=== PATIENT | male | born 1960 | race African-American/Black ===

== ENCOUNTER 2017-10-30 23:08 | Emergency (ER) | payer SELFPAY ==
[~2017-10-30] VITALS: Ht 180.3 cm; Wt 109.9 kg
[2017-10-30 23:13] VITALS: TEMP 36.8; Ht 180.3 cm; Wt 109.9 kg
[2017-10-31 00:16] LABS: EOS % 2.3 %; HEMATOCRIT 42.4 % (42-52); IG% 0.2 %; LYMPH ABS # 2.74 K/uL (1.2-3.4); MEAN CELL VOLUME 74.6 fL (80-100); MEAN CORPUSCULAR HEMOGLOBIN 24.1 pg (25-34); MEAN CORPUSCULAR HGB CONC 32.3 g/dl (32-36); MEAN PLATELET VOLUME 9.9 fL (7.4-10.4); MONO % 10.9 %; NEUT % 38.6 %; PLATELET COUNT 204 K/uL (130-400); RED BLOOD COUNT 5.68 M/uL (4.7-6.1); WHITE BLOOD COUNT 5.71 K/uL (4.8-10.8)
[2017-10-31 00:44] LABS: COMPLETE YES; MICROCYTOSIS PRESENT; OVALOCYTES 1+; POLYCHROMASIA 1+; VACUOLIZATION 1+
[2017-10-31 00:50] LABS: ALKALINE PHOSPHATASE 72 U/L (45-117); ALT/SGPT 32 U/L (12-78); AST/SGOT 15 U/L (15-37); BLOOD UREA NITROGEN 10 mg/dl (7-18); BUN/CREATININE RATIO 8.8 (10-20); CALCIUM 8.9 mg/dl (8.5-10.1); CARBON DIOXIDE 26 mmol/L (21-32); CHLORIDE 101 mmol/L (98-107); CKMB/CK RATIO 0.8 (0-3.0); CREATININE 1.09 mg/dl (0.60-1.40); GLUCOSE 243 mg/dl (70-99); POTASSIUM 3.9 mmol/L (3.5-5.1); SODIUM 133 mmol/L (136-145)
[2017-10-31] MEDS ORDERED: VITA1TAB7 PO (01:28)
[2017-10-31] MEDS ORDERED: VITATAB19 PO (01:28)
[2017-10-31] MEDS ORDERED: CHOL1000 PO (01:28)
--- NOTE | 2017-10-31 02:57 | EMERGENCY ROOM VISIT NOTE ---
History First contact with patient: 23:17 Chief Complaint: ARM PAIN Stated Complaint: SORE ARM History of Present Illness The patient is a 57 year old male who presents to the Emergency Room with complaints of bilateral arm pain for the past week or so who states she's had a blood clot in an arm before but was not on anti-platelet medication. She cannot recall when she had this blood clot and does not know this superficial or deep. Patient has been traveling recently. She does not smoke. Patient states she's been traveling as his ex-boyfriend is stocking him. There is no restraining order. She did notify the police when she was in [place] 3 days ago about this. She states she does not need to re-notify the police here in [place]. Patient states she's been out of his diabetes, blood pressure, cholesterol and transgender medications. He recognizes himself as a female. He 's had breast implants and genitalia surgery. Patient denies chest pain, dyspnea, fever, chills, numbness, tingling, weakness, leg pain or swelling. Patient denies history of CVA or heart disease. No tobacco use. No drug use. Review of Systems See HPI for pertinent positives & negatives. A total of 10 systems reviewed and were otherwise negative. Past Medical/Surgical History Diabetes, hypertension, hyperlipidemia, cholecystectomy Social History Smoking Status: Never Smoker Smokeless Tobacco Use: No Alcohol Use: occasionally Drug Use: none Marital Status: single Current/Historical Medications Scheduled Cholecalciferol (Vitamin D3), Unknown Dose PO DAILY Vitamin A-Beta Carotene (Vitamin A), Unknown Dose PO DAILY Vitamin E (Vitamin E), Unknown Dose PO DAILY Physical Exam Vital Signs Date Time Temp Pulse Resp B/P (MAP) Pulse Ox O2 Delivery O2 Flow Rate FiO2 10/31/17 01:23 64 18 142/80 96 Room Air 10/31/17 00:09 74 10/30/17 23:13 36.8 81 18 155/82 96 Room Air Physical Exam VITALS: Vitals are noted on the nurse's note and reviewed by myself. Vital signs stable. GENERAL: Pleasant female, in no acute distress, nondiaphoretic, well-developed well-nourished. SKIN: The skin was without rashes, erythema, edema, or bruising. There is no tenting of the skin. Capillary reflex less than 2 seconds. HEAD: Normocephalic atraumatic. EARS: External auditory canals clear, tympanic membranes pearly [place] without erythema or effusion bilaterally. EYES: Pupils equal round and reactive to light and accommodation. Conjunctivae without injection, sclerae without icterus. Extraocular movements intact. NOSE: Patent, turbinates without inflammation or discharge. MOUTH: Mucous membranes moist. Pharynx without erythema or exudate. Uvula midline. Airway patent. Tongue does not deviate. NECK: Supple without nuchal rigidity. No lymphadenopathy. No thyromegaly. Cervical spine is nontender. No JVD. HEART: Regular rate and rhythm LUNGS: Clear to auscultation bilaterally without wheezes, rales or rhonchi. No dullness to percussion. No retractions or accessory muscle use. ABDOMEN: Positive bowel sounds x 4. Normal tympanic percussion. Soft, nontender, without masses or organomegaly. Bradley sign negative. No guarding or rebound tenderness. MUSCULOSKELETAL: No muscle atrophy, erythema, or edema noted. Bilateral arms nontender to palpation with 5 over 5 strength bilaterally. Radial pulses +2 equal present bilaterally. NEURO: Patient was alert and oriented to person place and time. Normal sensation to light and sharp touch. No focal neurological deficits. Medical Decision & Procedures Laboratory Results 10/31/17 00:05 Red Blood Count 5.68, Mean Corpuscular Volume 74.6, Mean Corpuscular Hemoglobin 24.1, Mean Corpuscular Hemoglobin Concent 32.3, Mean Platelet Volume 9.9, Neutrophils (%) (Auto) 38.6, Lymphocytes (%) (Auto) 48.0, Monocytes (%) (Auto) 10.9, Eosinophils (%) (Auto) 2.3, Basophils (%) (Auto) 0.0, Neutrophils # (Auto ) 2.21, Lymphocytes # (Auto) 2.74, Monocytes # (Auto) 0.62, Eosinophils # (Auto ) 0.13, Basophils # (Auto) 0.00 10/31/17 00:05 Test 10/31/17 00:05 10/31/17 02:15 White Blood Count 5.71 K/uL (4.8-10.8) Red Blood Count 5.68 M/uL (4.7-6.1) Hemoglobin 13.7 g/dL (14.0-18.0) Hematocrit 42.4 % (42-52) Mean Corpuscular Volume 74.6 fL (80-100) Mean Corpuscular Hemoglobin 24.1 pg (25-34) Mean Corpuscular Hemoglobin Concent 32.3 g/dl (32-36) Platelet Count 204 K/uL (130-400) Mean Platelet Volume 9.9 fL (7.4-10.4) Neutrophils (%) (Auto) 38.6 % Lymphocytes (%) (Auto) 48.0 % Monocytes (%) (Auto) 10.9 % Eosinophils (%) (Auto) 2.3 % Basophils (%) (Auto) 0.0 % Neutrophils # (Auto) 2.21 K/uL (1.4-6.5) Lymphocytes # (Auto) 2.74 K/uL (1.2-3.4) Monocytes # (Auto) 0.62 K/uL (0.11-0.59) Eosinophils # (Auto) 0.13 K/uL (0-0.5) Basophils # (Auto) 0.00 K/uL (0-0.2) RDW Standard Deviation 38.7 fL (36.4-46.3) RDW Coefficient of Variation 14.4 % (11.5-14.5) Immature Granulocyte % (Auto) 0.2 % Immature Granulocyte # (Auto) 0.01 K/uL (0.00-0.02) Toxic Vacuolation 1+ Polychromasia 1+ Microcytosis PRESENT Ovalocytes 1+ Anion Gap 6.0 mmol/L (3-11) Est Creatinine Clear Calc Drug Dose 94.3 ml/min Estimated GFR () 86.9 Estimated GFR (Non- 74.9 BUN/Creatinine Ratio 8.8 (10-20) Calcium Level 8.9 mg/dl (8.5-10.1) Total Bilirubin 0.2 mg/dl (0.2-1) Direct Bilirubin mg/dl (0-0.2) Aspartate Amino Transf (AST/SGOT) 15 U/L (15-37) Alanine Aminotransferase (ALT/SGPT) 32 U/L (12-78) Alkaline Phosphatase 72 U/L (45-117) Total Creatine Kinase 306 U/L (39-308) Creatine Kinase MB 2.6 ng/ml (0.5-3.6) Creatine Kinase MB Ratio 0.8 (0-3.0) Total Protein 7.8 gm/dl (6.4-8.2) Albumin 3.7 gm/dl (3.4-5.0) Chemistry Specimen Hemolysis Bedside Troponin I < 0.030 ng/ml (0-0.045) ED Course Prior records/ancillary studies reviewed. Triage Nursing notes reviewed. The patient's history was concerning for bilateral arm pain Differential diagnosis: Etiologies such as DVT, muscle skeletal, rhabdomyolysis, cardiac ischemia, aortic dissection, infections, as well as others were entertained. Physical examination: As above. ER treatment provided: By mouth fluids On reassessment the patient felt better. Diagnostic interpretation by me: The electrocardiogram was normal sinus, normal intervals, minimal ST elevation in the anteroseptal leads most likely early repolarization, rate of 73. Impression normal sinus rhythm interpreted by myself. Repeat EKG is unchanged. The labs revealed 2 troponins are negative for greater than 2 hours apart. Normal CPK. Hyperglycemia without DKA Imaging studies: Chest x-ray with no acute consolidation, pneumothorax. Per my interpretation Ultrasound negative for DVT Exam and history seem consistent with bilateral arm pain with unclear etiology. This could be muscle skeletal nature. No DVT. Mild hyperglycemia without DKA. Patient was offered information women's resource and declined. She was offered for rest to notify the police about her ex-boyfriend and declined. Patient was given discount cards for her medications. She was offered prescriptions and declined. She was strongly encouraged to take her medications as directed and to control her diabetes. She states she is a 5 AM bus and would like to catch this. Case management, Mai, spoke to the patient about woman's resources and all questions are answered. Patient was advised to follow-up family care in a few days or here in the ER sooner for chest pain, difficulty breathing, numbness, tingling, weakness, worsening signs or symptoms or as needed. By the evaluation outlined above emergent etiologies such as cardiac ischemia, aortic dissection, pulmonary embolism, pneumonia, pneumothorax, infections, pericarditis, myocarditis, gastrointestinal, as well as others were deemed relatively unlikely. The pt informed about the findings as listed above. All questions were answered and pleased with the treatment. Return instructions were outlined and the patient was discharged in stable condition. Referral: The patient was referred back to primary care physician for follow-up in 2 to 3 days for a recheck of the current condition. Case reviewed with my attending Medical Decision as above Impression Primary Impression: Bilateral arm pain Additional Impression: Hyperglycemia due to type 2 diabetes mellitus Departure Information Dispostion Home / Self-Care Condition GOOD Referrals No Doctor, Assigned (PCP) Patient Instructions [facility] Additional Instructions Recommend that you restart all your medications. Monitor your blood sugars. There are high. Ibuprofen(Motrin, Advil) may be used for fever or pain. Use 600mg every six hours as needed. Take with food. Avoid using more than 2400mg in a 24 hour period. Do not use 2400mg per day for more than three consecutive days without physician direction. Prolonged inappropriate use can lead to stomach upset or ulcers. (AND/OR) Acetaminophen(Tylenol) may be used for fever or pain. Use 1000mg every six hours as needed. Avoid using more than 3000mg in a 24 hour period. Rest and drink plenty of fluids as tolerated. Continue current medications. Avoid strenuous activities and anything that worsens your pain. Resume normal activities once your symptoms resolve. Return to the ER immediately for abdominal pain, vomiting, fevers, chest pains, difficulty breathing, worsening of your condition, or as needed. Follow up with your primary physician in 2-3 days for a recheck of your current condition. Problem Qualifiers Additional Impression: Hyperglycemia due to type 2 diabetes mellitus Diabetes mellitus custodial insulin use: with custodial use Qualified Codes: E11.65 - Type 2 diabetes mellitus with hyperglycemia; Z79.4 - intermodal dispatcher ( current) use of insulin
[2017-10-31 03:07] VITALS: BP 137/91; PULSE 68; O2SAT 99
--- NOTE | 2017-10-31 06:31 | DIAGNOSTIC IMAGING REPORT ---
ULTRASOUND VENOUS DOPPLER UPR EXT BILA CLINICAL HISTORY: Bilateral arm pain COMPARISON STUDY: No previous studies for comparison. FINDINGS: No intraluminal thrombus was visualized. The internal jugular, subclavian, axillary, cephalic, brachial, basilic, radial, and ulnar veins were patent. IMPRESSION: No evidence of upper extremity DVT. Electronically signed by: William Corrigan M.D. 10/31/2017 6:29 AM Dictated Date/Time: 10/31/2017 6:29 AM
--- NOTE | 2017-10-31 06:50 | DIAGNOSTIC IMAGING REPORT ---
CHEST ONE VIEW PORTABLE CLINICAL HISTORY: Atypical chest pain COMPARISON STUDY: No previous studies for comparison. FINDINGS: The heart is normal in size. There is prominence of the right mediastinum likely secondary to aortic tortuosity/ectasia. There is no focal pulmonary consolidation. There is borderline elevation left hemidiaphragm with minor left basilar atelectasis. No pleural effusions are visualized.[ IMPRESSION: 1. Prominence of the right mid mediastinum likely secondary to aortic tortuosity/ectasia 2. No evidence of failure. No evidence of lobar consolidation Electronically signed by: William Corrigan M.D. 10/31/2017 6:49 AM Dictated Date/Time: 10/31/2017 6:48 AM
== END 2017-10-31 03:08 | disposition home or self-care (01) ==
LOC: C.EDB 23:10 → C.EDA 10-31 03:08
DX: M79.601 Pain in right arm (principal); M79.602 Pain in left arm; E11.65 Type 2 diabetes mellitus with hyperglycemia; Z79.4 Long term (current) use of insulin; I10 Essential (primary) hypertension; Z86.718 Personal history of other venous thrombosis and embolism; Z90.49 Acquired absence of other specified parts of digestive tract